=== PATIENT | male | born 1980 ===

== ENCOUNTER 2022-08-28 02:48 | Emergency (ER) | payer OTHER ==
[2022-08-28] MEDS ORDERED: TETANUS & DIPHTHERIA TOX,ADULT 0.5 ML VIAL ONE (03:24)
[2022-08-28] MEDS ORDERED: LIDOCAINE 1% W/EPI 1:100,000 50 ML MDV ONE (03:24)
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
[2022-08-28] MEDS ORDERED: HYDROCODONE/APAP 10/325 TAB ONE (05:03)
[2022-08-28] MEDS ORDERED: MUPIROCIN 2% OINT 22GM TUBE TOP ONE (05:04)
[2022-08-28] MEDS ORDERED: CEPHALEXIN 250 MG CAP ONE (05:04)
--- NOTE | 2022-08-28 19:18 | RAD REPORT ---
EXAM DESCRIPTION: CT - Head C Spine Mpr Wo Con - 08/28/2022 7:06 am CLINICAL HISTORY: Headache;Trauma TECHNIQUE: Contiguous axial CT images obtained through the brain without IV contrast. Coronal and sa gittal reformatted images were provided. This exam was performed according to our departmental dose-optimization program, which includes autom ated exposure control, adjustment of the mA and/or kV according to patient size and/or use of iterati ve reconstruction technique. COMPARISON: None available for comparison FINDINGS: Brain: No significant white matter changes. No focal mass effect. Chamorro-white matter differ entiation is within normal limits. No hemorrhage. Ventricles: No ventriculomegaly or midline shift. Extra-axial spaces: No extra-axial collection or hemorrhage. Paranasal sinuses and mastoid air cells: Well-aerated Bones: Unremarkable Soft tissues: Small left frontal scalp hematoma. IMPRESSION: No acute intracranial injury. Small left frontal scalp hematoma. EXAM DESCRIPTION: Head C Spine Mpr Wo Con CLINICAL HISTORY: Headache;Trauma TECHNIQUE: Contiguous axial CT images obtained through the cervical spine without IV contrast. Cor onal and sagittal reformatted images also provided. This exam was performed according to our departmental dose-optimization program, which includes autom ated exposure control, adjustment of the mA and/or kV according to patient size and/or use of iterati ve reconstruction technique. COMPARISON: None available for comparison FINDINGS: Vertebra: No acute fracture or subluxation. Degenerative changes: Intervertebral disc spaces are fairly well maintained. No critical canal stenos is. Foramina appear patent. Prevertebral soft tissues: Unremarkable Lung apices: Clear IMPRESSION: No acute cervical spine fracture or malalignment. Electronically signed by: Alexandre Morrow MD 08/28/2022 3:44 AM CDT Due to temporary technical issues with the PACS/Fluency reporting system, reports are being signed by the in house radiologists without review as a courtesy to insure prompt reporting. The interpreting radiologist is fully responsible for the content of the report.
== END 2022-08-28 05:06 | disposition home or self-care (01) ==
LOC: ER 02:48
PROC: 0HQ0XZZ Repair Scalp Skin, External Approach (ICD-10-PCS; principal; 2022-08-28)
DX: S01.01XA Laceration without foreign body of scalp, initial encounter (principal); S81.812A Laceration without foreign body, left lower leg, initial encounter; X99.1XXA Assault by knife, initial encounter; Z23 Encounter for immunization
CPT/HCPCS: 70450; 72125; 90471; 90714; 99284